=== PATIENT | male | born 1965 | race Caucasian/White ===

== ENCOUNTER 2017-02-09 00:03 | Emergency (ER) | payer BC ==
[~2017-02-09] VITALS: Ht 172.7 cm; Wt 102.2 kg
[~2017-02-09 00:03] MED LIST: ATORVASTATIN CA40 MG PO; DAILY VALUE1 EACH PO; FARXIGA5 MG PO; FISH OIL 1,2001 EAC4 PO; FOLIC ACID1 MG PO; KEFLEX500 MG PO; LISINOPRIL20 MG PO; LO-DOSE ASPIRIN81 M2 PO; METFORMIN HCL1000 MG PO; TOPROL XL25 MG PO; TYLENOL WITH C1 EACH PO; VITAMIN D31000 UNIT PO; ZYRTEC10 M3 PO
[2017-02-09 00:46] LABS: HEMATOCRIT 42.5 % (38.0-50.0); HEMOGLOBIN 15.7 G/DL (12.5-16.6); MCH 34.5 PG (29.0-34.0); MCHC 36.9 G/DL (30.0-36.0); MCV 93.4 FL (86-99); PLATELET COUNT 173 K/uL (156-360); RBC DIS.WIDTH-CV 13.2 % (11.8-14.6); RBC DIS.WIDTH-SD 44.7 % (39-53); RED BLOOD COUNT 4.55 M/uL (4.00-5.50); WHITE BLOOD COUNT 6.2 K/uL (4.1-10.2)
[2017-02-09 00:54] LABS: ALBUMIN 3.8 g/dL (3.2-4.8)
[2017-02-09 00:55] LABS: CHLORIDE 101 mEq/L (99-109); POTASSIUM 3.9 mEq/L (3.7-5.4); SODIUM 135 mEq/L (136-147)
[2017-02-09 00:57] LABS: GLUCOSE 356 mg/dL (70-99); TOTAL PROTEIN 7.1 g/dL (6.4-8.3)
[2017-02-09 00:59] LABS: TOTAL BILIRUBIN 0.4 mg/dL (0.0-1.0)
[2017-02-09 01:00] LABS: SERUM ETHYL ALCOHOL 316 mg/dL
[2017-02-09 01:01] LABS: ALKALINE PHOSPHATASE 72 IU/L (3-129); CREATININE 1.3 mg/dL (0.6-1.3); GFR ESTIMATE (CALCULATED) > 59 mL/min/ (58.99-99999)
[2017-02-09 01:02] LABS: AST (GOT) 45 IU/L (2-34)
[2017-02-09 01:03] LABS: UREA NITROGEN (BUN) 9 mg/dL (9-23)
[2017-02-09 01:04] LABS: ALT (GPT) 61 IU/L (3-49); SALICYLATE < 5.0 MG/DL (15-30)
[2017-02-09 01:05] LABS: ACETAMINOPHEN (TYLENOL) < 10 mcg/mL (10-30)
[2017-02-09 01:39] LABS: AMPHETAMINE NEGATIVE (500 ng/mL); BARBITURATES NEGATIVE (200 ng/mL); BENZODIAZEPINES PRESUMPTIVE POSITIVE (150 ng/mL); BUPRENORPHINE NEGATIVE (10 ng/mL); COCAINE NEGATIVE (150 ng/mL); METHADONE NEGATIVE (200 ng/mL); METHAMPHETAMINE NEGATIVE (500 ng/mL); OPIATES (MORPHINE) NEGATIVE (100 ng/mL); OXYCODONE NEGATIVE (100 ng/mL); PHENCYCLIDINE NEGATIVE (25 ng/mL); PROPOXYPHENE NEGATIVE (300 ng/mL); THC CANNABINOIDS NEGATIVE (50 ng/mL); TRICYCLIC ANTIDEPRESSANTS NEGATIVE (300 ng/mL)
[2017-02-09 02:11] LABS: BENZODIAZEPINES, URINE SCREEN POSITIVE (200 ng/mL)
[2017-02-09 07:26] VITALS: BP 133/84
== END 2017-02-09 07:27 | disposition home or self-care (01) ==
LOC: EME 00:03
PROVIDERS: Emergency Medicine
DX: F10.129 Alcohol abuse with intoxication, unspecified (principal); E11.9 Type 2 diabetes mellitus without complications; Z79.84 Long term (current) use of oral hypoglycemic drugs; I25.2 Old myocardial infarction; F32.9 Major depressive disorder, single episode, unspecified
CPT/HCPCS: 80053; 84999; 85027; 93005; G0480

== ENCOUNTER 2017-10-10 11:51 | Emergency (ER) | payer BC ==
[~2017-10-10] VITALS: Ht 170.2 cm; Wt 98.5 kg
[2017-10-10 12:32] LABS: HEMATOCRIT 42.1 % (38.0-50.0); HEMOGLOBIN 15.2 G/DL (12.5-16.6); MCH 34.1 PG (29.0-34.0); MCHC 36.1 G/DL (30.0-36.0); MCV 94.4 FL (86-99); PLATELET COUNT 201 K/uL (156-360); RBC DIS.WIDTH-SD 41.3 % (39-53); RED BLOOD COUNT 4.46 M/uL (4.00-5.50); WHITE BLOOD COUNT 5.7 K/uL (4.1-10.2)
[2017-10-10 12:53] LABS: ALBUMIN 4.3 g/dL (3.2-4.8); CHLORIDE 107 mEq/L (99-109); POTASSIUM 4.1 mEq/L (3.7-5.4); SODIUM 143 mEq/L (136-147)
[2017-10-10 12:55] LABS: GLUCOSE 143 mg/dL (70-99); TOTAL PROTEIN 7.8 g/dL (6.4-8.3)
[2017-10-10 12:58] LABS: SERUM ETHYL ALCOHOL 347 mg/dL
[2017-10-10 12:59] LABS: ALKALINE PHOSPHATASE 78 IU/L (3-129); CREATININE 0.7 mg/dL (0.6-1.3); GFR ESTIMATE (CALCULATED) > 59 mL/min/ (58.99-99999)
[2017-10-10 13:00] LABS: UREA NITROGEN (BUN) 8 mg/dL (9-23)
[2017-10-10 13:01] LABS: AST (GOT) 39 IU/L (2-34)
[2017-10-10 13:02] LABS: ALT (GPT) 46 IU/L (3-49)
[2017-10-10 13:19] LABS: TOTAL BILIRUBIN 0.8 mg/dL (0.0-1.0)
[2017-10-10 14:45] VITALS: BP 154/71
[2017-10-10 15:16] LABS: APPEARANCE CLEAR ((CLEAR)); BILIRUBIN NEGATIVE; BLOOD NEGATIVE; COLOR STRAW ((YELLOW)); GLUCOSE (STRIP) NEGATIVE; KETONES 5; LEUKOCYTES NEGATIVE; NITRITE NEGATIVE; PROTEIN (STRIP) NEGATIVE; SPECIFIC GRAVITY 1.005 (1.000-1.030); UROBILINOGEN 0.2 MG/DL (0.2-1.0)
[2017-10-10 15:38] LABS: AMPHETAMINE NEGATIVE (500 ng/mL); BARBITURATES NEGATIVE (200 ng/mL); BENZODIAZEPINES NEGATIVE (150 ng/mL); BUPRENORPHINE NEGATIVE (10 ng/mL); COCAINE NEGATIVE (150 ng/mL); METHADONE NEGATIVE (200 ng/mL); METHAMPHETAMINE NEGATIVE (500 ng/mL); OPIATES (MORPHINE) NEGATIVE (100 ng/mL); OXYCODONE NEGATIVE (100 ng/mL); PHENCYCLIDINE NEGATIVE (25 ng/mL); PROPOXYPHENE NEGATIVE (300 ng/mL); THC CANNABINOIDS NEGATIVE (50 ng/mL); TRICYCLIC ANTIDEPRESSANTS NEGATIVE (300 ng/mL)
== END 2017-10-10 14:45 | disposition home or self-care (01) ==
LOC: EME 11:51
PROVIDERS: Emergency Medicine
DX: F10.129 Alcohol abuse with intoxication, unspecified (principal); Y90.8 Blood alcohol level of 240 mg/100 ml or more; E11.9 Type 2 diabetes mellitus without complications; Z79.84 Long term (current) use of oral hypoglycemic drugs; I25.2 Old myocardial infarction; Z79.82 Long term (current) use of aspirin
CPT/HCPCS: 80053; 81003; 85027; 99281; 99285; G0480; J7030